=== PATIENT | female | born 1975 | race American Indian/Alaskan Native ===

== ENCOUNTER 2017-02-09 13:55 | Outpatient (CLI) | payer OTHER ==
--- NOTE | 2017-02-10 10:41 | Magnetic Resonance Report ---
MRI scan of brain: History: Headache. Technique: Multiplanar, multisequence images were obtained without and with contrast injection. Findings: Ventricles are normal in size and midline in location. No evidence acute ischemia, hemorrhage or mass. No abnormal enhancement. No extra-axial fluid collection. Normal brainstem and cerebellum. Normal sinuses and mastoid air cells. Impression: Essentially negative MRI scan of brain.
== END 2017-02-09 13:56 | disposition home or self-care (01) ==
LOC: ECHO 13:55 → CARD 13:55
PROVIDERS: ATTEND Family Medicine
DX: R51 Headache (principal)
CPT/HCPCS: 70553; 93306; A9577